=== PATIENT | male | born 1985 | race Caucasian/White ===

== ENCOUNTER 2019-09-29 07:56 | Day surgery (SDC) | payer OTHER ==
[2019-09-29 08:45] LABS: INTERNATIONAL RATION (INR) 1.01; PROTHROMBIN TIME 13.3 SEC (11.4-15.4)
[2019-09-29 08:46] LABS: PARTIAL THROMBOPLASTIN TIME 29.3 SEC (23.5-35.8)
[2019-09-29 12:33] LABS: COLOR ALL TUBES COLORLESS; CSF TUBE NUMBER 3
[2019-09-29 12:34] LABS: APPEARANCE ALL TUBES CLEAR; CSF TOTAL VOLUME 13.8 CC; VOLUME TUBE 3 3.8 CC
[2019-09-29 12:35] LABS: RED BLOOD CELL,CSF 0 /uL (0-10); WHITE BLOOD CELL,CSF 6 /uL (0-5)
--- NOTE | 2019-09-29 12:37 | RADIOLOGY REPORT (SQ) ---
EXAM DESCRIPTION: LUMBAR PUNCTURE; FLUORO/NEEDLE PLACEMENT/SPINE COMPLETED DATE/TIME: 09/29/2019 11:42 am; 09/29/2019 11:43 am REASON FOR STUDY: PATHAK/EYE PAIN COMPARISON: None. FLUOROSCOPY TIME: 10 seconds 1 Images saved to PACS. TECHNIQUE: Fluoroscopic guided lumbar puncture with opening and closing pressures. LIMITATIONS: None. PROCEDURE: After written consent and assessment were obtained, the patient was brought into the fluo roscopy room and placed prone on the table. The patient's lower back was prepped in a sterile fashion and an entry site was selected under live fluoroscopic guidance. The entry site was anesthetized wit h 1% lidocaine. A 22 gauge needle was advanced through the skin and into the thecal sac at the level of L 2 -L 3 . An opening pressure of 19 units was obtained. After approximately 14 ml of CSF was drai robb, a closing pressure of 17 units was obtained. The needle was removed and a sterile bandage was pl aced of the site. Specimens were sent to the lab for testing. A fluoroscopic spot image was saved to PACS confirming level access. FINDINGS: Clear CSF IMPRESSION: Lumbar puncture under fluoroscopy. No immediate complication. COMMENT: Patient medication list reviewed: Yes- Quality ID# [id number]:Eligible professional attests to doc umenting in the medical record they obtained, updated, or reviewed the patient's current medications. Quality ID 145: Final reports for procedures using fluoroscopy that document radiation exposure indic es, or exposure time and number of fluorographic images (if radiation exposure indices are not availa ble) TECHNICAL DOCUMENTATION: Job ID: [id number] [employer]- All Rights Reserved Reading location - IP/workstation name: [email or web address]
[2019-09-29 13:05] LABS: GLUCOSE,CSF 62 mg/dL (40-70); PROTEIN,CSF 61 mg/dL (12-60)
[2019-09-29 13:28] LABS: MONONUCLEAR CELLS CSF 100 %; POLYMORPHONUCLEAR CELLS CSF 0 %
[2019-09-29 15:12] VITALS: BP 118/74
== END 2019-09-29 14:05 | disposition home or self-care (01) ==
LOC: RAD 07:56 → EDSEX 10:30 → EDSTATUS 10:30 → RAD 14:05
PROVIDERS: ATTEND Psychiatry & Neurology Neurology
DX: G43.711 Chronic migraine without aura, intractable, with status migrainosus (principal); H57.13 Ocular pain, bilateral; M54.5 Low back pain
CPT/HCPCS: 36415; 62270; 77003; 82945; 84157; 85610; 85730; 86592; 86617; 87070; 87101; 87205; 87210; 89050